=== PATIENT | female | born 1990 ===

== ENCOUNTER → 2018-05-20 05:43 | Day surgery (SDC) | payer OTHER ==
[~2018-05-20 05:43] MED LIST: Buffered Lidocaine 1% SYRIN* 1 ML/SYRINGE INTRADERM ONE; Bupivacaine 0.5% W/EPI SDV* 30 ML VIAL ONE; Dexamethasone IV* 4 MG/ML 1 ML (4 MG) IV SLOW PU ONE; Dexamethasone IV* 4 MG/ML 1 ML (4 MG) ONE; DiMENhydriNATE IV* 50 MG/ML VIAL IV PUSH PRN; DiMENhydriNATE IV* 50 MG/ML VIAL ONE; EPINEPHRINE 1 MG/ML 1 ML VIAL ONE; Famotidine IV* 10 MG/ML 2 ML (20 mg) IV ONE; Famotidine IV* 10 MG/ML 2 ML (20 mg) ONE; Ketorolac INJ* 30 MG/ML 1 ML VIAL IV PRN; Lactated Ringers 1000 ML Bag* 1,000 ML IV SCH; Levalbuterol 0.63MG/3ML NEB* UNIT OF USE INH ONE; Lidocaine 2% PF * 5 ML VIAL ONE; Midazolam* 1 MG/ML 5 ML VIAL (5 MG) ONE; Naloxone* 0.4 MG/ML 1 ML VIAL IV PRN; Ondansetron INJ* 2 MG/ML VIAL ONE; Propofol* 10 MG/ML 20 ML BTL ONE; ROPIVACAINE 5 MG/ML 30 ML BTL (0.5%) ONE; Succinylcholine* 20 MG/ML 10 ML VIAL ONE; ceFAZolin 1 GM in Dextrose (*) 1 GM/50 ML BAG IVPB ONE; ceFAZolin 2 GM in NS PREMIX(*) 2 GM/100 ML BAG IVPB ONE; fentaNYL* 50 MCG/ML 2 ML VIAL (100 MCG VIAL) IV PRN; fentaNYL* 50 MCG/ML 2 ML VIAL (100 MCG VIAL) ONE; oxyCODONE TAB* 5 MG TAB PO PRN
[2018-05-20 11:41] VITALS: BP 107/71
--- NOTE | 2018-05-22 08:33 | OP ---
OPERATIVE NOTE: DATE OF OPERATION: 05/20/18 DATE OF : 88 SURGEON: Ulices Blackburn MD. CHARGE NURSE: TRACEY Cerrato. ANESTHESIOLOGIST: Albino Carr MD. ANESTHESIA: General anesthesia, regional interscalene block anesthesia. PRE-OP DIAGNOSES: 1. Right shoulder acromioclavicular joint osteoarthritis. 2. Right shoulder subacromial impingement and bursitis. 3. Right shoulder rotator cuff tendinitis, possible partial thickness bursal-sided tear. 4. Right shoulder possible biceps tendinosis or superior labral tear. POST-OP DIAGNOSES: 1. Right shoulder acromioclavicular joint arthritis. 2. Right shoulder subacromial impingement and bursitis. 3. Right shoulder rotator cuff tendinitis. 4. Right shoulder biceps tendinosis, proximal long head. OPERATIVE PROCEDURE: 1. Right shoulder subacromial decompression, arthroscopic. 2. Right shoulder arthroscopic distal clavicle resection. 3. Right shoulder arthroscopic limited debridement including release of biceps tendon within the paula ulder joint, and significant debridement of subacromial bursitis. ANTIBIOTICS: Ancef 3 g IV. IV FLUIDS: See anesthesia note. [id number] TIME: 39 minutes. ARTHROSCOPIC FLUID UTILIZED: Unknown to me. SPECIMEN: None. IMPLANTS: None. COMPLICATIONS: None. INDICATIONS FOR PROCEDURE: The patient is a 28-year-old woman, right hand dominant, direct support p [facility], who is 6 months from an injury at work on 11/23/17. The patient responded insufficiently to the full spectrum of nonoperative treatment and ultimately op max for surgery. Her pain persisted, and she was unable to meet criteria to return to work with just nonoperative management. Imaging showed AC joint degenerative changes and rotator cuff tendinitis and some subacromial bursiti s with a possible bursal-sided supraspinatus tendon tear. I discussed risks and potential complications of surgery. The patient preferred biceps tendon release to tenodesis. We discussed pros and cons of each. DESCRIPTION OF PROCEDURE: The patient signed a written consent in preoperative holding. Operative e xtremity was marked in preoperative holding. The patient underwent an interscalene regional nerve bl ock placed by Anesthesia. The patient was brought back to the operating room and placed supine on operating room table. Sedate d and intubated. The patient was turned into the lateral decubitus position with the right shoulder up. Axillary roll. Bony prominences padded. Giles bag hardened. Right shoulder and longitudinal tr action with the appropriate amount of forward flexion and abduction with 15 pounds of longitudinal tr action. Right shoulder was prepped and draped. Surgical time-out performed. Needle, spinal, was entered into the right shoulder glenohumeral joint from posterior and 30 cc of no rmal saline were infused. Established posterior glenohumeral joint portal using standard technique. Started diagnostic arthroscopy. No articular cartilage injury. There was some minimal irritation an d fraying of the rotator cuff, supraspinatus, but nothing even that needed to be smoothed out. The patient's shoulder joint was noted to be slightly capacious. There was some inflammation along the length of the proximal long head biceps tendon, so I decided to release it. I brought arthroscopic scissors in from an anterior glenohumeral joint portal establish ed under direct visualization. I used that to release the biceps at its origin. I debrided some minimal rotator cuff interval tissue with an arthroscopic shaver. I removed instruments and fluid from the glenohumeral joint and moved to the subacromial space. I en countered significant subacromial bursitis, more than typical. I established a lateral subacromial p ortal under direct visualization and used an arthroscopic shaver to remove the synovitic bursitic tis tristan. I also established a posterolateral portal to improve visualization of the rotator cuff. I visualized and probed with a switching stick and arthroscopic probe the rotator cuff. No clear rot ator cuff tendon tear. I next used an arthroscopic bur to debride the undersurface of the anterior aspect of the sub-acromio n, subacromial decompression. I next moved to the AC joint. I debrided synovitic tissue with a VAPR device. I then debrided at le ast 8 mm at the distal end of the clavicle with an arthroscopic bur. Removed instruments and fluids from the subacromial space. Closed skin incisions with [id number] t 12 stitches using nylon 3-0 suture. Xeroform, 4x4s, ABDs, foam tape. Sling without abduction pill ow. The patient was awakened and extubated. DISPOSITION: The patient's oxygen saturations were a little bit better in the PACU, but she stayed s everal hours and this improved significantly. Therefore, the patient was discharged home. The patie nt will start physical therapy immediately. Wean out of sling immediately. Percocet as needed for pa in control. Follow up in clinic 10 to 14 days postoperatively. Wound care instructions provided. [id number]/[facility] #: [id number]
== END | disposition home or self-care (01) ==
LOC: OR 05:43
PROVIDERS: ATTEND Orthopaedic Surgery
DX: M19.011 Primary osteoarthritis, right shoulder (principal); M75.41 Impingement syndrome of right shoulder; M75.51 Bursitis of right shoulder; M75.21 Bicipital tendinitis, right shoulder; M75.81 Other shoulder lesions, right shoulder; G89.18 Other acute postprocedural pain; J45.909 Unspecified asthma, uncomplicated; E66.8 Other obesity; Z68.43 Body mass index [BMI] 50.0-59.9, adult
CPT/HCPCS: 81025; J0330; J0690; J1100; J1240; J2250; J2405; J2704; J2795; J3010